=== PATIENT | male | born 1990 | race Caucasian/White ===

== ENCOUNTER 2017-12-07 14:51 | Emergency (ER) | payer MEDICAID ==
[~2017-12-07] VITALS: Ht 172.7 cm; Wt 89.9 kg
[2017-12-07 18:06] VITALS: BP 121/71
== END 2017-12-07 18:08 | disposition home or self-care (01) ==
LOC: ER 14:51
DX: T16.1XXA Foreign body in right ear, initial encounter (principal); F15.10 Other stimulant abuse, uncomplicated; Z88.9 Allergy status to unspecified drugs, medicaments and biological substances; X58.XXXA Exposure to other specified factors, initial encounter; Y93.89 Activity, other specified; Y92.89 Other specified places as the place of occurrence of the external cause; Y99.8 Other external cause status
CPT/HCPCS: 69200; 99284; Z7610